=== PATIENT | female | born 1960 | race Caucasian/White ===

== ENCOUNTER 2018-07-18 11:53 | Outpatient (CLI) | payer OTHER ==
--- NOTE | 2018-07-18 13:52 | BD ---
DEXA BONE DENSITY EXAM: HISTORY: A 58-year-old postmenopausal female for screening. COMPARISON: None. FINDINGS: Lumbar Spine: BMD (g/cm2) L1 1.085 T-Score: 0.9 L2 1.069 T-Score: 0.4 L3 1.143 T-Score: 0.5 L4 1.036 T-Score: -0.2 L1-L4 1.083 T-Score: 0.3 Femoral Neck: 0.759 T-Score: -1.8 Total Femur: 0.981 T-Score: 0.3 Impression: Normal bone mineral density. POS: CET
== END 2018-07-18 11:54 | disposition home or self-care (01) ==
LOC: BICMAMMO 11:53
PROVIDERS: ATTEND Family Medicine
DX: Z12.31 Encounter for screening mammogram for malignant neoplasm of breast (principal); M85.89 Other specified disorders of bone density and structure, multiple sites
CPT/HCPCS: 77063; 77067; 77080